=== PATIENT | female | born 1995 | race Caucasian/White ===

== ENCOUNTER 2016-11-30 10:13 | Emergency (ER) | payer BC ==
[~2016-11-30] VITALS: Ht 170.2 cm; Wt 63.6 kg
[2016-11-30 10:14] VITALS: TEMP 98.7
[2016-11-30 10:44] LABS: BASO % 0.2 % (0.0-2.0); EOS % 0.2 % (0-4.0); GRAN % 70.5 % (42.2-75.2); HEMATOCRIT 40.5 % (35.0-45.0); HEMOGLOBIN 13.4 g/dl (12.0-15.0); LYMPH # 1.9 (1.2-3.4); LYMPH % 21.8 % (20.0-51.0); MEAN CELL VOLUME 86 fl (80.0-95.0); MEAN CORPUSCULAR HEMOGLOBIN 28 pg (26.0-32.0); MEAN CORPUSCULAR HGB CONC 33 g/dl (33.0-37.0); MEAN PLATELET VOLUME 8.8 fl (7.4-10.4); MONO # 0.6 (0.1-0.6); MONO % 6.5 % (1.7-9.3); PLATELET COUNT 251 K/mm3 (130-400); RED BLOOD COUNT 4.73 M/mm3 (4.10-5.30); REDCELL DISTRIBUTION WIDTH-CV 12.4 % (11.5-14.5); WHITE BLOOD COUNT 8.5 K/mm3 (4.8-10.8)
[2016-11-30 11:01] LABS: ADJUSTED CALCIUM 9.2 mg/dL (8.4-10.2); ALBUMIN 4.6 gm/dL (3.5-5.0); BILIRUBIN,TOTAL 0.9 mg/dL (0.0-1.0); CALCIUM 9.7 mg/dL (8.4-10.2); CREATININE, serum 0.69 mg/dL (0.52-1.25); POTASSIUM 4.1 mmol/L (3.4-5.0); TOTAL PROTEIN 7.9 gm/dL (6.4-8.2)
[2016-11-30 11:17] LABS: PROLACTIN 73.9 ng/mL (3.0-18.6)
[2016-11-30 12:11] LABS: PH 8 (5-8); SQUAMOUS EPITHELIAL 0-2 /hpf; URINE APPEARANCE Cloudy; URINE BACTERIA None Seen /hpf; URINE BILIRUBIN Negative (NEGATIVE); URINE BLOOD Negative (NEGATIVE); URINE COLOR Yellow; URINE GLUCOSE Negative (NEGATIVE); URINE KETONE Negative (NEGATIVE); URINE RBC 0-2 /hpf; URINE UROBILINOGEN Negative (NEGATIVE); URINE WBC 0-2 /hpf
[2016-11-30 12:21] LABS: INFLUENZA B NEGATIVE
[2016-11-30 12:33] LABS: AMPHETAMINE URINE NEGATIVE; BARBITURATES URINE NEGATIVE; BENZODIAZEPINES URINE NEGATIVE; BUPRENORPHINE URINE NEGATIVE; METHADONE URINE NEGATIVE; OPIATES URINE NEGATIVE; OXYCODONE URINE NEGATIVE; PHENCYCLIDINE URINE NEGATIVE; PROPOXYPHENE URINE NEGATIVE; THC CANNABINOIDS URINE NEGATIVE
[2016-11-30] MEDS ORDERED: ATIVAN 0.50.5 MG/TAB PO (13:21)
[2016-11-30 13:39] VITALS: BP 109/75; PULSE 99
== END 2016-11-30 14:11 | disposition home or self-care (01) ==
LOC: COL.ER 10:13
PROVIDERS: Emergency Medicine
DX: R56.9 Unspecified convulsions (principal); F41.9 Anxiety disorder, unspecified; R51 Headache; R00.0 Tachycardia, unspecified
CPT/HCPCS: J1885; J2060; J7030

== ENCOUNTER → 2016-12-06 | Outpatient (CLI) | payer BC ==
[~2016-12-06] MED LIST: ATIVAN 0.50.5 MG/TAB PO
== END ==
LOC: COL.RAD 12-04 08:15
DX: G40.89 Other seizures (principal)
CPT/HCPCS: A9585

== ENCOUNTER → 2016-12-14 | Outpatient (CLI) | payer BC | LOC: COL.CARD 07:41 | DX: G40.89 Other seizures (principal); R94.01 Abnormal electroencephalogram [EEG] ==